=== PATIENT | male | born 1955 | race Two or more races ===

== ENCOUNTER 2021-07-19 17:15 | Inpatient (IN) | payer OTHER ==
[~2021-07-19] VITALS: Ht 165.1 cm; Wt 74.8 kg
[2021-07-19 21:35] VITALS: BP 153/96
[2021-07-20] VITALS: BP 153/96
[2021-07-20] MEDS ORDERED: FINA5TAB11 PO (00:17)
[2021-07-20] MEDS ORDERED: PRED10TA23 PO (00:17)
[2021-07-20] MEDS ORDERED: ATOR20TA65 PO (00:17)
[2021-07-20] MEDS ORDERED: CARV25TA47 PO (00:17)
[2021-07-20] MEDS ORDERED: SPIR25TA6 PO (00:17)
[2021-07-20] MEDS ORDERED: NIFE-32 PO (00:17)
[2021-07-20] MEDS ORDERED: PARO-41 PO (00:17)
[2021-07-20] MEDS ORDERED: ASPI-1406 PO (00:17)
[2021-07-20] MEDS ORDERED: ACETAMINOPHEN 325MG TABLET PO PRN (01:00)
[2021-07-20] MEDS ORDERED: HYDROCODONE/ACETAMINOPHEN 5/325MG TABLET PO PRN (01:00)
[2021-07-20] MEDS ORDERED: INFLUENZA VACCINE 05/PF 0.5 ML SYRINGE IM ONE (01:30)
[2021-07-20] MEDS ORDERED: PNEUMOCOCCAL 23-VAL P-SAC VAC 0.5 ML IM ONE (01:30)
[2021-07-20 06:54] LABS: HEMATOCRIT. 37.5 % (42.0-52.0); HEMOGLOBIN. 12.5 g/dL (14.0-18.0); MEAN CORPUSCULAR HEMOGLOBIN 30.1 pg (28.0-32.0); MEAN CORPUSCULAR VOLUME 90.1 fL (80.0-94.0); MEAN PLATELET VOLUME 9.5 fl (7.4-10.4); PLATELET 102 x1000/uL (130-400); PROTHROMBIN TIME 10.7 sec (9.6-11.0); RED BLOOD CELL COUNT 4.16 mill/uL (4.7-6.1); RED CELL DISTRIBUTION WIDTH 15.6 % (11.6-14.6)
[2021-07-20 08:00] VITALS: BP 142/97
[2021-07-20] MEDS: SPIRONOLACTONE 25MG TABLET PO SCH (09:00)
[2021-07-20] MEDS: CARVEDILOL 12.5MG TABLET PO SCH ×2 (09:00→18:07)
[2021-07-20] MEDS: PREDNISONE 10MG TABLET PO SCH (09:00)
[2021-07-20] MEDS: NIFEDIPINE XL 60MG TAB PO SCH (09:00)
[2021-07-20] MEDS: ATORVASTATIN CALCIUM 20MG TABLET PO SCH (09:00)
[2021-07-20 11:09] LABS: CREATINE KINASE 21 IU/L (39-308)
[2021-07-20 12:00] VITALS: BP 153/92
[2021-07-20 13:28] LABS: CLARITY URINE CLOUDY (CLEAR); COLOR URINE YELLOW (YELLOW); KETONES URINE NEGATIVE (NEGATIVE); LEUKOCYTE ESTERASE URINE 1+ (NEGATIVE); NITRITE URINE NEGATIVE (NEGATIVE); OCCULT BLOOD URINE 2+ (NEGATIVE); PROTEIN URINE 2+ (NEGATIVE); SPECIFIC GRAVITY URINE 1.014 (1.005-1.030); UROBILINOGEN URINE 0.2 E.U./dL (0.2-1.0)
[2021-07-20 16:00] VITALS: BP 153/83
[2021-07-20] MEDS: PAROXETINE HCL 10MG TABLET PO SCH (18:06)
[2021-07-20] MEDS ORDERED: FLUCONAZOLE 150MG TABLET PO SCH (18:30)
[2021-07-20 20:00] VITALS: BP 149/98
[2021-07-20] MEDS ORDERED: FINASTERIDE 5MG TABLET PO SCH (21:00)
[2021-07-20] MEDS ORDERED: CEFTRIAXONE 1,000 MG in DEXTROSE 5% WATER 50 ML IV SCH (21:00)
[2021-07-20 21:35] LABS: PLATELET ESTIMATE DECREASED
[2021-07-21] VITALS (7 sets, daily range): BP systolic 111–162; BP diastolic 83–98
[2021-07-21 09:30] LABS: HEMATOCRIT 35.1 % (42.0-52.0); HEMOGLOBIN 11.9 g/dL (14.0-18.0); MEAN CORPUSCULAR HEMOGLOBIN 30.4 pg (28.0-32.0); MEAN CORPUSCULAR VOLUME 89.7 fL (80.0-94.0); PLATELET 115 x1000/uL (130-400); RED BLOOD CELL COUNT 3.91 mill/uL (4.7-6.1); RED CELL DISTRIBUTION WIDTH 15.5 % (11.6-14.6)
[2021-07-21] MEDS: ATORVASTATIN CALCIUM 20MG TABLET PO SCH (10:01)
[2021-07-21] MEDS: CARVEDILOL 12.5MG TABLET PO SCH ×2 (10:01→16:54)
[2021-07-21] MEDS: SPIRONOLACTONE 25MG TABLET PO SCH (10:02)
[2021-07-21] MEDS: PREDNISONE 10MG TABLET PO SCH (10:02)
[2021-07-21] MEDS: NIFEDIPINE XL 60MG TAB PO SCH (10:02)
[2021-07-21] MEDS: PAROXETINE HCL 10MG TABLET PO SCH (10:03)
[2021-07-21] MEDS ORDERED: NALOXONE HCL 0.4MG/ML VIAL IV PRN (19:00)
[2021-07-22] MEDS ORDERED: ATORVASTATIN CALCIUM 20MG TABLET PO SCH (21:00)
== END 2021-07-21 20:20 | disposition home or self-care (01) | DRG 689 ==
LOC: 6EST 17:15
PROVIDERS: ADMIT Internal Medicine; ATTEND Internal Medicine
DX: N39.0 Urinary tract infection, site not specified (principal); R65.11 Systemic inflammatory response syndrome (SIRS) of non-infectious origin with acute organ dysfunction; N17.9 Acute kidney failure, unspecified; N18.9 Chronic kidney disease, unspecified; N40.0 Benign prostatic hyperplasia without lower urinary tract symptoms; E11.22 Type 2 diabetes mellitus with diabetic chronic kidney disease; Z20.822 Contact with and (suspected) exposure to COVID-19; I12.9 Hypertensive chronic kidney disease with stage 1 through stage 4 chronic kidney disease, or unspecified chronic kidney disease; E78.5 Hyperlipidemia, unspecified; K80.20 Calculus of gallbladder without cholecystitis without obstruction; Z87.442 Personal history of urinary calculi
CPT/HCPCS: 36415; 76770; 80048; 81003; 82550; 85025; 85027; 87426; 90686; 90732; J0696; J7042; J7060; J7512